=== PATIENT | male | born 1955 | race Caucasian/White ===

== ENCOUNTER 2020-03-27 05:15 | Emergency (ER) | payer BC ==
[2020-03-27] MEDS ORDERED: Alum Hydrox/Mag Hydrox/Simeth 30 ML, Lidocaine 2% 15 ML PO STA ×2 (06:03)
--- NOTE | 2020-03-27 06:08 | EDM.PDOC ---
ED HPI GENERAL MEDICAL PROBLEM - General Chief Complaint: Respiratory Problem Stated Complaint: POSSIBLE SINIUS INFECTION TIGHTNESS IN CHEST Time Seen by Provider: 03/27/20 05:27 Source of Information: Reports: Patient History Limitations: Reports: No Limitations - History of Present Illness INITIAL COMMENTS - FREE TEXT/NARRATIVE: Mr. Abraham is a most pleasant 64-year-old gentleman with a past medical history significant for chronic sinusitis, who now presents to the ED stating that he woke with retrosternal chest tightness and throat tightness, along with chills without a fever, and watery diarrhea yesterday morning, 03/26/2020. He states that the chest tightness comes and goes. It is made worse if he takes a deep breath, but made better if he drinks a hot liquid. The throat tightness does not respond to breathing or liquids. He noticed that he was quite diaphoretic yesterday morning, although none since, and that he was dyspneic this morning, although not now. No associated nausea or sense of impending doom. No prior similar symptoms. The patient states that he took some Pepto-Bismol for his diarrhea yesterday morning, but no other medicines to treat his symptoms. He has been taking Praveena-[place] plus cold and flu to treat his sinus symptoms, with his most recent dose on Friday afternoon, 03/25/2020. Here in the ED, the patient's initial BP is found to be modestly elevated at 163/90, otherwise, he is hemodynamically stable, afebrile, saturating 98% on room air. Other than his chronic sinusitis issues, prior to yesterday morning, the patient denies having a recent fever, chills, sore throat, ear pain, nasal or sinus congestion, cough, dyspnea, chest pain, palpitations, nausea, vomiting, constipation, diarrhea, abdominal pain, urinary symptoms, recent weight gain or weight loss, recent bloody bowel movements or black bowel movements, recent joint aches, headaches, or rashes. The patient's PCP is in [place]. He did receive an influenza vaccine this season. - Related Data Allergies Allergy/AdvReac Type Severity Reaction Status Date / Time No Known Allergies Allergy Verified 03/27/20 05:26 Home Meds: Home Meds Aspirin 81 mg PO DAILY 03/27/20 [History] Fluticasone Propionate [Flonase Allergy Relief] 9.9 ml NS DAILY 03/27/20 [History] Losartan [Cozaar] 50 mg PO DAILY 03/27/20 [History] Simvastatin 20 mg PO DAILY 03/27/20 [History] metFORMIN [Glucophage] 500 mg PO DAILY 03/27/20 [History] Past Medical History HEENT History: Reports: Impaired Vision (weras glasses), Sinusitis (chronic) Cardiovascular History: Reports: High Cholesterol, Hypertension Gastrointestinal History: Reports: Diverticulosis Genitourinary History: Reports: BPH (untreated) Musculoskeletal History: Reports: Arthritis Endocrine/Metabolic History: Reports: Obesity/BMI 30+, Other (See Below) (Prediabetes) - Past Surgical History HEENT Surgical History: Reports: Cataract Surgery (bilateral) GI Surgical History: Reports: Appendectomy, Cholecystectomy (around 1999), Colonoscopy Musculoskeletal Surgical History: Reports: Shoulder Surgery (left, arthroscopic) Social & Family History - Tobacco Use Tobacco Use Status *Q: Never Tobacco User - Alcohol Use Alcohol Use History: No - Recreational Drug Use Recreational Drug Use: No - Living Situation & Occupation Living situation: Reports: , with Spouse 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 ED EXAM, GENERAL - Physical Exam Exam: See Below Exam Limited By: No Limitations General Appearance: Alert, WD/WN, No Apparent Distress Eye Exam: Bilateral Eye: EOMI, Normal Inspection Ears: Normal External Exam, Normal Canal, Hearing Grossly Normal, Normal TMs Nose: Normal Inspection, Normal Mucosa, No Blood Throat/Mouth: Normal Lips, Normal Teeth, Normal Gums, Normal Voice, No Airway Compromise, Other (Erythematous, somewhat dry-appearing posterior oropharynx, however, no swelling. Diminutive tonsils.) Head: Atraumatic, Normocephalic Neck: Normal Inspection, Supple, Non-Tender, Full Range of Motion. No: Lymphadenopathy (L), Lymphadenopathy (R) Respiratory/Chest: No Respiratory Distress, Lungs Clear, Normal Breath Sounds, No Accessory Muscle Use. No: Decreased Breath Sounds, Crackles, Rhonchi, Wheezing, Stridor, Prolonged Expiration Cardiovascular: Normal Peripheral Pulses, Regular Rate, Rhythm, No Edema, No Gallop, No JVD, No Murmur, No Rub Peripheral Pulses: 3+: Radial (L), Radial (R) GI/Abdominal: Normal Bowel Sounds, Soft, Non-Tender, No Organomegaly, No Distention, No Abnormal Bruit, No Mass Back Exam: Normal Inspection, Full Range of Motion, NT Extremities: Normal Inspection, Normal Range of Motion, Normal Capillary Refill Neurological: Alert, Oriented, Normal Cognition, No Motor/Sensory Deficits Psychiatric: Normal Affect Skin Exam: Warm, Dry, Intact, Normal Color, No Rash #1 Interpretation EKG Date: 03/27/20 Time: 06:18 Rhythm: NSR Rate (Beats/Min): 82 [place]: Normal P-Wave: Present QRS: Normal ST-T: Normal QT: Normal Comparison: NA - No Prior EKG Course - Vital Signs Last Recorded V/S: Last Vital Signs Temp 36.2 C 03/27/20 05:29 Pulse 81 03/27/20 05:29 Resp 19 03/27/20 05:29 BP 163/90 H 03/27/20 05:29 Pulse Ox 98 03/27/20 05:29 - Orders/Labs/Meds Orders: Active Orders 24 hr Category Date Time Status CORONAVIRUS COVID-19 PCR PHL Stat Lab 03/27/20 06:15 Received CULTURE BLOOD [BC] Stat Lab 03/27/20 06:23 Received CULTURE BLOOD [BC] Stat Lab 03/27/20 06:31 Received Blood Culture x2 Reflex Set [OM.PC] Stat Oth 03/27/20 06:01 Ordered Isolation [COMM] Routine Oth 03/27/20 06:01 Ordered Labs: Laboratory Tests 03/27/20 03/27/20 03/27/20 Range/Units 06:23 06:23 06:23 WBC 4.83 (4.23-9.07) K/mm3 RBC 4.71 (4.63-6.08) M/mm3 Hgb 14.0 (13.7-17.5) gm/dl Hct 42.0 (40.1-51.0) % MCV 89.2 (79.0-92.2) fl MCH 29.7 (25.7-32.2) pg MCHC 33.3 (32.2-35.5) g/dl RDW Std Deviation 43.8 (35.1-43.9) fL Plt Count 156 L (163-337) K/mm3 MPV 10.7 (9.4-12.3) fl Neutrophils % (Manual) 64 H (40-60) % Band Neutrophils % 0 (0-10) % Lymphocytes % (Manual) 23 (20-40) % Atypical Lymphs % 1 % Monocytes % (Manual) 11 H (2-10) % Eosinophils % (Manual) 1 (0.8-7.0) % Basophils % (Manual) 0 L (0.2-1.2) Platelet Estimate Adequate RBC Morph Comment Normal D-Dimer, Quantitative (0.19-0.50) mg/L Sodium 138 (136-145) mEq/L Potassium 3.8 (3.5-5.1) mEq/L Chloride 101 (98-107) mEq/L Carbon Dioxide 24 (21-32) mEq/L Anion Gap 16.8 H (5-15) BUN 12 (7-18) mg/dL Creatinine 1.0 (0.7-1.3) mg/dL Est Cr Clr Drug Dosing 69.77 mL/min Estimated GFR (MDRD) > 60 (>60) mL/min BUN/Creatinine Ratio 12.0 L (14-18) Glucose 87 (80-115) mg/dL Lactic Acid 1.1 (0.4-2.0) mmol/L Calcium 9.2 (8.5-10.1) mg/dL Magnesium 2.2 (1.8-2.4) mg/dl Total Bilirubin 0.4 (0.2-1.0) mg/dL AST 29 (15-37) U/L ALT 38 (16-63) U/L Alkaline Phosphatase 55 (46-116) U/L Troponin I < 0.017 (0.00-0.056) ng/mL C-Reactive Protein 1.7 H* (<1.0) mg/dL Total Protein 7.9 (6.4-8.2) g/dl Albumin 4.0 (3.4-5.0) g/dl Globulin 3.9 gm/dL Albumin/Globulin Ratio 1.0 (1-2) 03/27/20 Range/Units 06:23 WBC (4.23-9.07) K/mm3 RBC (4.63-6.08) M/mm3 Hgb (13.7-17.5) gm/dl Hct (40.1-51.0) % MCV (79.0-92.2) fl MCH (25.7-32.2) pg MCHC (32.2-35.5) g/dl RDW Std Deviation (35.1-43.9) fL Plt Count (163-337) K/mm3 MPV (9.4-12.3) fl Neutrophils % (Manual) (40-60) % Band Neutrophils % (0-10) % Lymphocytes % (Manual) (20-40) % Atypical Lymphs % % Monocytes % (Manual) (2-10) % Eosinophils % (Manual) (0.8-7.0) % Basophils % (Manual) (0.2-1.2) Platelet Estimate RBC Morph Comment D-Dimer, Quantitative 0.63 H (0.19-0.50) mg/L Sodium (136-145) mEq/L Potassium (3.5-5.1) mEq/L Chloride (98-107) mEq/L Carbon Dioxide (21-32) mEq/L Anion Gap (5-15) BUN (7-18) mg/dL Creatinine (0.7-1.3) mg/dL Est Cr Clr Drug Dosing mL/min Estimated GFR (MDRD) (>60) mL/min BUN/Creatinine Ratio (14-18) Glucose (80-115) mg/dL Lactic Acid (0.4-2.0) mmol/L Calcium (8.5-10.1) mg/dL Magnesium (1.8-2.4) mg/dl Total Bilirubin (0.2-1.0) mg/dL AST (15-37) U/L ALT (16-63) U/L Alkaline Phosphatase (46-116) U/L Troponin I (0.00-0.056) ng/mL C-Reactive Protein (<1.0) mg/dL Total Protein (6.4-8.2) g/dl Albumin (3.4-5.0) g/dl Globulin gm/dL Albumin/Globulin Ratio (1-2) Meds: Medications Discontinued Medications Generic Name Dose Route Start Last Admin Trade Name Freq PRN Reason Stop Dose Admin Al Hydroxide/Mg Hydroxide 30 0 ml 03/27/20 06:03 03/27/20 06:15 ml/ Lidocaine HCl 15 ml PO 03/27/20 06:04 45 ml ONETIME STA Administration - Re-Assessments/Exams Free Text/Narrative Re-Assessment/Exam: 03/27/20 06:03 As above, the patient has chronic sinus issues, and has been experiencing a headache consistent with his chronic sinusitis for some time. He is here, however, after developing chest and throat tightness, chills without fever, and watery diarrhea yesterday morning, then dyspnea this morning. His chest tightness is still present if he takes a deep breath, then it is improved if he drinks a hot liquid, although nothing modifies his throat tightness. He is af ebrile, saturating 98% on room air. His presentation is somewhat concerning for cardiac etiology, therefore I have ordered a work-up that includes blood work, 2 sets of blood cultures, a chest x-ray, an ECG, and a swab for influenza. I have also ordered a send-out swab for the SARS-CoV-2 virus. In the meantime, the patient will be given a GI cocktail, to see if that affects his throat/chest tightness. 03/27/20 06:30 The patient's ECG shows no ischemic changes. 03/27/20 08:16 The patient's CBC is remarkable for thrombocytopenia of 156,000, and is otherwise unremarkable. His CMP is remarkable for an anion gap slightly elevated at 16.8, but with a bicarbonate normal at 24, and the remainder of his CMP being unremarkable. His magnesium level is within normal limits at 2.2. His lactic acid level is within normal limits at 1.1. His CRP is mildly elevated at 1.7. His troponin is undetectably low. His D-dimer is slightly elevated at 0.63. His influenza swab returned negative. Chest x-ray results are still pending. 03/27/20 08:35 Two-view chest radiograph appears to be grossly normal. The cardiac silhouette is within normal limits. No pulmonary vascular congestion. No pleural e ffusions. No focal infiltrate. No pneumothorax. Formal read per the Radiologist pending. 03/27/20 08:43 Test results discussed with the patient. As above, today's work-up is grossly unremarkable and does not explain his symptoms, however, his swab to test for the SARS-CoV-2 virus could still return positive and explain all of his symptoms. I therefore recommended that he self-isolate until he gets those results. The patient readily agreed, and asked for a note for work. Departure - Departure Time of Disposition: 08:44 Disposition: Home, Self-Care 01 Condition: Good Clinical Impression: Chest tightness, Throat tightness, Dyspnea, Chills (without fever), Watery diarrhea, Sinus headache - Discharge Information *PRESCRIPTION DRUG MONITORING PROGRAM REVIEWED*: Not Applicable *COPY OF PRESCRIPTION DRUG MONITORING REPORT IN PATIENT VJ: Not Applicable Instructions: Nonspecific Chest Pain, Adult Referrals: PCP,Not In Area [Primary Care Provider] - Forms: ED Department Discharge, ED Return to Work/School Form Additional Instructions: You were seen in the emergency room after developing chest and throat tightness with chills and watery diarrhea yesterday morning, followed by shortness of breath this morning, in addition to a chronic/recurrent sinus headache. Work-up in the ER included blood work, 2 sets of blood cultures, a chest x-ray, an ECG, an influenza swab, and a send-out swab for the SARS-CoV-2 virus. Your entire work-up was unremarkable, and does not explain the cause of your symptoms. You have not suffered a heart attack. You do not have a blood clot in your lungs. You do not have pneumonia. You do not have influenza. Your swab for the SARS-CoV-2 virus is a send-out test. You will be notified within the next few days of the test results. We recommend that you self- isolate until you test negative. A note for work has been provided to you. If any other problems, please do not hesitate to return to the ER. Sepsis Event Note (ED) - Evaluation Sepsis Screening Result: No Definite Risk - My Orders Last 24 Hours: My Active Orders 03/27/20 06:01 Blood Culture x2 Reflex Set [OM.PC] Stat Isolation [COMM] Routine 03/27/20 06:15 CORONAVIRUS COVID-19 PCR PHL Stat 03/27/20 06:23 CULTURE BLOOD [BC] Stat 03/27/20 06:31 CULTURE BLOOD [BC] Stat - Assessment/Plan Last 24 Hours: My Active Orders 03/27/20 06:01 Blood Culture x2 Reflex Set [OM.PC] Stat Isolation [COMM] Routine 03/27/20 06:15 CORONAVIRUS COVID-19 PCR PHL Stat 03/27/20 06:23 CULTURE BLOOD [BC] Stat 03/27/20 06:31 CULTURE BLOOD [BC] Stat
--- NOTE | 2020-03-27 10:30 | CR ---
PROCEDURE INFORMATION: Exam: XR Chest, 2 Views Exam date and time: 03/27/2020 7:39 AM Age: 64 years old Clinical indication: Shortness of breath and other: Chest tightness TECHNIQUE: Imaging protocol: XR of the chest Views: 2 views. COMPARISON: No relevant prior studies available. FINDINGS: Lungs: The lungs are normally expanded and clear. Pleural space: Normal. Heart/Mediastinum: Normal heart and cardiomediastinal silhouette. Vasculature: Normal pulmonary vessel caliber. Normal aorta. Bones/joints: The bones are intact. IMPRESSION: No acute disease or suspicious finding. Thank you for allowing us to participate in the care of your patient. Dictated and Authenticated by: Glenn Sumner MD 03/27/2020 9:50 AM Central Time ([place] & [place]) [facility]
== END 2020-03-27 09:29 | disposition home or self-care (01) ==
LOC: JD.ED 05:15
DX: U07.1 COVID-19 (principal); I10 Essential (primary) hypertension; E78.00 Pure hypercholesterolemia, unspecified; E66.9 Obesity, unspecified; Z90.49 Acquired absence of other specified parts of digestive tract; Z79.82 Long term (current) use of aspirin; Z79.899 Other long term (current) drug therapy
CPT/HCPCS: 36415; 71046; 80053; 83605; 83735; 84484; 85007; 85027; 85379; 86140; 87040; 87635; 87804; 93005; 99285; A9270; U0002

== ENCOUNTER 2022-09-09 03:27 | Emergency (ER) | payer BC ==
[2022-09-09] MEDS ORDERED: methylPREDNISolone Sodium Succinate 125 MG/2 ML SDV IVPUSH ONE (03:56)
[2022-09-09] MEDS ORDERED: Famotidine 20 MG/2 ML SDV IVPUSH ONE (03:57)
[2022-09-09] MEDS ORDERED: diphenhydrAMINE 50 MG/ML SDV IVPUSH ONE (03:57)
== END 2022-09-09 05:57 | disposition home or self-care (01) ==
LOC: JD.ED 03:27
DX: T78.40XA Allergy, unspecified, initial encounter (principal); J01.00 Acute maxillary sinusitis, unspecified; E78.00 Pure hypercholesterolemia, unspecified; I10 Essential (primary) hypertension; M19.90 Unspecified osteoarthritis, unspecified site; E66.9 Obesity, unspecified; Z68.32 Body mass index [BMI] 32.0-32.9, adult; Z90.49 Acquired absence of other specified parts of digestive tract; Z79.82 Long term (current) use of aspirin; Z79.84 Long term (current) use of oral hypoglycemic drugs; Z79.899 Other long term (current) drug therapy
CPT/HCPCS: 36415; 80053; 85025; 96374; 96375; 99283; J1200; J2930; J3490